=== PATIENT | male | born 1975 | race Caucasian/White ===

== ENCOUNTER 2025-07-17 03:50 | Emergency (ER) | payer SELFPAY ==
[~2025-07-17] VITALS: Ht 165.1 cm; Wt 61.0 kg
[2025-07-17 04:17] VITALS: O2SAT 97
[2025-07-17] MEDS ORDERED: FLUORESCEIN SODIUM 1MG/STRIP BOTHEYE ONE (04:45)
[2025-07-17] MEDS: SODIUM CHLORIDE 0.9% 1,000 ML IV ONE ×3 (05:30→08:38)
[2025-07-17] MEDS ORDERED: SODIUM CHLORIDE 0.9% 1,000 ML IV ONE (07:45)
[2025-07-17] MEDS: IBUPROFEN 600MG TABLET PO ONE (08:38)
[2025-07-17] MEDS: TETRACAINE 0.5% OPHTH DROPS 4ML BOTHEYE ONE (08:43)
[2025-07-17] MEDS: NEO/POLYMYX B SULF/DEXAMETH OPHTH OINT 3.5GM RIGHTEYE STA (09:41)
[2025-07-17] MEDS: CYCLOPENTOLATE HCL 1% OPHTH DROPS 2ML RIGHTEYE ONE (09:41)
[2025-07-17 10:30] VITALS: BP 118/72; PULSE 82; RESP 18; TEMP 36.8; O2SAT 99
[2025-07-17] MEDS: TETANUS, DIPHTHERIA, PERTUSSIS VAC/PF 0.5ML (>10YR OLD) IM ONE (10:42)
== END 2025-07-17 10:45 | disposition home or self-care (01) ==
LOC: ER 03:50
DX: S05.91XA Unspecified injury of right eye and orbit, initial encounter (principal); H16.201 Unspecified keratoconjunctivitis, right eye; W44.9XXA Unspecified foreign body entering into or through a natural orifice, initial encounter; Y93.89 Activity, other specified; Y92.89 Other specified places as the place of occurrence of the external cause; Y99.8 Other external cause status
CPT/HCPCS: 99284; 96360; 96361; 90715; 90471; J7030